=== PATIENT | female | born 1965 | race Caucasian/White ===

== ENCOUNTER 2017-08-19 04:30 | Emergency (ER) | payer MEDICAID, OTHER ==
[2017-08-19 04:58] LABS: #Basophils 0.1 thou/uL (0.0-0.2); #Lymphocytes 2.5 thou/uL (1.20-3.40); #Monocytes 0.5 thou/uL (0.11-0.59); #Neutrophils 7.4 thou/uL (1.40-6.50); %Basophils 1.3 % (0.0-1.0); %Eosinophils 0.4 % (0.0-10.0); %Lymphocytes 23.9 % (21.0-51.0); %Monocytes 4.5 % (0.0-10.0); %Neutrophils 69.9 % (42.0-75.0); Hemoglobin 14.5 g/dL (12.0-16.0); Mean Corpuscular HGB CONC 34.9 g/dL (32.0-36.0); Mean Corpuscular Hemoglobin 31.5 pg (27.0-31.0); Mean Corpuscular Volume 90.3 fl (81.0-99.0); Mean Platelet Volume 5.8 fL (7.4-10.4); Platelet Count 317 thou/uL (130-400); RBC Distribution Width 11.6 % (11.5-14.5); Red Blood Cell (RBC) Count 4.62 mill/uL (4.20-5.40); White Blood Cell (WBC) Count 10.5 thou/uL (4.8-10.8)
[2017-08-19 05:05] LABS: Bilirubin Moderate (Negative); Blood, Urine Negative (Negative); Clarity Cloudy (Clear); Glucose, Urine (Dipstick) Negative (Negative); Leukocyte Negative (Negative); Nitrite Negative (Negative); Pregnancy Test - Urine (BHCG) Negative (Negative); Pregu Control Background? CLEAR/WHITE (CLR/WHITE); Pregu Control Bar Appear? YES (CONTROL BAR); Protein, Urine (Dipstick) Trace mg/dL (Neg-Trace); pH, Urine 6.5 (5.0-9.0)
[2017-08-19 05:12] LABS: Cocaine Metabolite Screen Detected (NotDetected)
[2017-08-19 05:12] LABS: ALT (SGPT) 13 U/L (8-55); AST (SGOT) 16 U/L (5-34); Acetaminophen Less than 6.0 mcg/mL (10.0-30.0); Albumin 4.7 g/dL (3.5-5.0); Alcohol Less than 10 mg/dL (Less than 10); Alkaline Phosphatase 92 U/L (40-150); Anion Gap 17 mmol/L (10-20); BUN (Urea Nitrogen) 15 mg/dL (7.0-18.7); Bilirubin, Total 0.5 mg/dL (0.2-1.2); Calc. Creatinine Clearance 0 mL/min (70-130); Calcium 9.7 mg/dL (7.8-10.44); Carbon Dioxide 19 mmol/L (22-29); Chloride 106 mmol/L (98-107); Estimated GFR-MDRD Greater than 90; Globulin 2.8 g/dL (2.4-3.5); Glucose 105 mg/dL (70-105); Lipase 20 U/L (8-78); Potassium 3.2 mmol/L (3.5-5.1); Protein, Total 7.5 g/dL (6.0-8.3); Salicylate Less than 8.0 mg/dL (15.0-30.0); Sodium 139 mmol/L (136-145)
[2017-08-19 05:13] LABS: Amphetamine Not Detected (NotDetected); Barbiturates Screen Not Detected (NotDetected); Benzodiazepine Screen Detected (NotDetected); Medtox Control Line Valid? VALID (VALID); Methadone Not Detected (NotDetected); Methamphetamine Not Detected (NotDetected); Opiate Screen Not Detected (NotDetected); Oxycodone Screen Detected (NotDetected); Phencyclidine (PCP) Not Detected (NotDetected); THC/Cannabinoid Screen Not Detected (NotDetected); Tricyclic Screen Not Detected (NotDetected)
== END 2017-08-19 05:23 | disposition home or self-care (01) ==
LOC: SCSER 04:30
DX: F11.20 Opioid dependence, uncomplicated (principal); F41.9 Anxiety disorder, unspecified; F32.9 Major depressive disorder, single episode, unspecified; F17.210 Nicotine dependence, cigarettes, uncomplicated; Z79.899 Other long term (current) drug therapy
CPT/HCPCS: 80053; 80306; 80307; 81003; 81025; 83690; 85025; 99284

== ENCOUNTER 2017-11-05 15:58 | Emergency (ER) | payer OTHER | END 2017-11-05 16:44 | disposition home or self-care (01) | LOC: SCSER 15:58 | DX: H00.11 Chalazion right upper eyelid (principal); F17.210 Nicotine dependence, cigarettes, uncomplicated; Z79.899 Other long term (current) drug therapy | CPT/HCPCS: 99283 ==

== ENCOUNTER 2018-01-03 07:53 | Emergency (ER) | payer OTHER ==
[2018-01-03] MEDS ORDERED: Lidocaine 4% Cream 5 GM TUBE w/ Tegaderm ONE (08:11)
[2018-01-03] MEDS ORDERED: Lidocaine 1% PF 5 ML VIAL ONE (08:13)
[2018-01-03] MEDS ORDERED: Adacel (T-DAP) 0.5 ML VIAL ONE (08:20)
== END 2018-01-03 08:45 | disposition home or self-care (01) ==
LOC: SCSER 07:53
DX: S61.011A Laceration without foreign body of right thumb without damage to nail, initial encounter (principal); F17.210 Nicotine dependence, cigarettes, uncomplicated; F32.9 Major depressive disorder, single episode, unspecified; W26.8XXA Contact with other sharp object(s), not elsewhere classified, initial encounter
CPT/HCPCS: 12001; 90471; 90715; J2001

== ENCOUNTER 2018-08-05 08:59 | Emergency (ER) | payer OTHER | END 2018-08-05 09:41 | disposition home or self-care (01) | LOC: SCSER 08:59 | DX: J30.2 Other seasonal allergic rhinitis (principal); F17.210 Nicotine dependence, cigarettes, uncomplicated | CPT/HCPCS: 99283 ==

== ENCOUNTER 2018-08-29 15:03 | Emergency (ER) | payer OTHER ==
--- NOTE | 2018-08-29 15:49 | RAD ---
AP VIEW OF THE PELVIS: INDICATION: History of low back pain and buttock pain after fall. COMPARISON: None. FINDINGS: A small phlebolith is seen within the lower right hemipelvis. No acute fracture or subluxation is ev ident. IMPRESSION: No acute osseous abnormality. POS: [facility]
== END 2018-08-29 16:00 | disposition home or self-care (01) ==
LOC: SCSER 15:03
DX: S70.02XA Contusion of left hip, initial encounter (principal); F17.210 Nicotine dependence, cigarettes, uncomplicated; F32.9 Major depressive disorder, single episode, unspecified; Z79.899 Other long term (current) drug therapy; W19.XXXA Unspecified fall, initial encounter
CPT/HCPCS: 72170